=== PATIENT | female | born 1950 | race Caucasian/White ===

== ENCOUNTER 2023-05-19 13:20 | Outpatient (AMB) | payer MEDICARE, MEDICAID, SELFPAY ==
--- NOTE | 2023-05-19 13:30 | A.OFFVIS_ITS ---
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 She is here with son Jose L who is also her historian. He reports pt has constant left temporal headaches lasting between a couple of hours to a full day. This causes her pain to the left eye. She has been treating them with Tylenol. Sometimes this works and sometimes it doesn't. He reports she's a little off on time, at times she thinks its daytime in the evening or its night time in the morning . She also has difficulty sleeping. She has no problem falling asleep but she is unable to stay asleep for more than 3 hours. Allergies Penicillins Allergy (Intermediate, Verified 05/19/23 13:45) Anaphylaxis aspirin Allergy (Mild, Verified 05/19/23 13:45) Hives Medication List - Last Reconciled 05/19/23 by Sarah Man MD atorvastatin 10 mg PO DAILY cholecalciferol (vitamin D3) 10 mcg PO DAILY clonazepam 1 mg PO BID diclofenac sodium 1% (Aleve (diclofenac)) 2 grams topical QID doxazosin 1 mg PO DAILY folic acid 1 mg PO DAILY gabapentin 300 mg PO DAILY levothyroxine 25 mcg PO DAILY losartan-hydrochlorothiazide 100-25 mg (Hyzaar) 1 tab PO DAILY metoprolol succinate ER 25 mg PO DAILY [id number]-[id number] appl topical omeprazole 20 mg PO DAILY potassium chloride ER 8 mEq PO DAILY HPI HPI Comments History of Present Illness Details 72y/o female comes for evaluation cognit aidan issues and headaches she is accompanied by her son who helps with interpretation she has been having short term memory issues atleast for 1 year now. she is confused with the time of the day. she forgets conversations, repeats things, misplaces things around the house. she stays in her room most of the day.she has [employer] that gives her medications she has trouble with dates and sometimes with names and has worsened .Her mother had dementia SHe had a fall 8 mths ago and hit her head. since then she started having frequent headaches.The headaches are frontal pounding pain with neck pain with light sensitivity. No nausea . when she has headaches she has blurred vision.she has 2-3 headaches , usually tylenol helps. it can last the whole day. she has h/o anxiety . Denies depression [facility] Medical History (Updated 05/19/23 @ 14:34 by Sarah Man MD) Headaches due to old head injury Dementia Anxiety Alcoholic Cirrhosis Anemia Coarse tremors Memory loss Hyperlipidemia Diabetes HTN (hypertension) Surgical History H/O section Family History Father No problems noted. Mother No problems noted. Maternal Aunt No problems noted. Social History Household Members: Family and Children Housing: Apartment Alcohol intake: current Tobacco use type: Cigar Non Cigarette Tobacco use how long: once a month for a couple years Use of substances other than those prescribed or required for medical reasons: No Review of Systems Neuro Reports confusion Psych Reports confusion Physical Exam Vital Signs: Last Vital Signs Pulse 73 05/19/23 13:32 Resp 16 05/19/23 13:32 BP 112/62 05/19/23 13:32 Pulse Ox 96 05/19/23 13:32 Oxygen Delivery Method Room Air 05/19/23 13:32 BMI result Body Mass Index 28.7 Const Other: She went to school but says did not pay attention so cannot spell . she can read but did not bring glasses General: cooperative, comfortable and confusion Nutritional Appearance: average body habitus Orientation/consciousness: confusion Neuro Other: walks with cane slow , off balance head tremors mild neck - tightness General: tone normal, moves all extremities and confusion Cranial nerves: Yes Bilaterally intact EOM present, Yes Normal facial strength present and Yes Midline tongue present Cognition (Neuro): abnormal cognition Gait exam (Neuro): Ataxic gait present Motor exam (neuro): 5/5 motor strength present throughout and Normal motor musc le tone present throughout Deep tendon reflexes (DTR's): Right triceps reflex intensity grade: 1+, Left triceps reflex intensity grade: 1+, Rt Biceps (C5, C6): 1+, Left biceps reflex intensity grade: 1+, Right brachioradialis reflex intensity grade: 1+, Left brachioradialis reflex intensity grade: 1+, Right patellar reflex intensity grade: 1+ and Left patellar reflex intensity grade: 1+ Coordination: [id number] test normal Psych Appearance: grossly normal Orientation What is the (year) (season) (date) (day) (month)?: day and month Where are we (state) (county) (town or city) (hospital) (floor)?: town or city and hospital/clinic Registration Name of 3 unrelated objects clearly and slowly, then ask patient to repeat all 3 of them. (1st repeat determines score. Make sure they can repeat all three): object 1, object 2 and object 3 Recall Ask patient to repeat the 3 items from question #3.: object 1 Language Show patient a wristwatch & ask what it is. Repeat for pencil.: watch and pencil Ask the patient to repeat the phrase 'No ifs, ands, or buts' after you.: correct Ask the patient to 'take a piece of paper with their right hand' 'fold paper in half' 'place paper on floor': take paper in right hand and fold paper in half Score Score: 13 Assessment & Plan Assessment & Plan (1) Dementia: Comment: mixed vs vascular Code(s): F03.90 - Unspecified dementia, unspecified severity, without behavioral disturbance, psychotic disturbance, mood disturbance, and anxiety (2) Headaches due to old head injury: Comment: post head injury - migraines Code(s): G44.309 - Post-traumatic headache, unspecified, not intractable; S09.90XS - Unspecified injury of head, sequela Plan Reviewed Dr. Ulloa notes- CT brain from 2020 - age related changes Vut B 12 normal will get other lab reports Her headaches are likely post concussive but she is managing with OTC meds Her neck muscles are tight which can contribute to her headaches - she will benefit from PT for myofascial release but patient declines. I will trial her on aricept 5 mg qd for 4 weeks then 10 mg qd Discuss about increasing social activities risk factor reduction etc. Medications: New donepezil 1/2 tabq d for 4 weeks then 1 tab qd orally daily; 30 tabs 5RF Coding Level of Care Code New Pt Level 4 (80575) Diagnoses Dementia F03.90 Headaches due to old head injury G44.309; S09.90XS
[2023-05-19 13:32] VITALS: BP 112/62; PULSE 73; RESP 16; O2SAT 96; BMI 28.7
== END 2023-05-19 14:45 | disposition home or self-care (01) ==
PROVIDERS: PCP Internal Medicine; Visit Provider Psychiatry & Neurology Neurology
DX: F03.90 Unspecified dementia, unspecified severity, without behavioral disturbance, psychotic disturbance, mood disturbance, and anxiety (principal); G44.309 Post-traumatic headache, unspecified, not intractable; S09.90XS Unspecified injury of head, sequela
CPT/HCPCS: 99204

== ENCOUNTER → 2023-05-19 13:20 | Outpatient (BNVA) | payer MEDICARE, MEDICAID, SELFPAY | PROVIDERS: PCP Internal Medicine; Visit Provider Psychiatry & Neurology Neurology ==

== ENCOUNTER 2024-04-12 11:04 | Outpatient (AMB) | payer MEDICARE, MEDICAID, SELFPAY ==
--- NOTE | 2024-04-12 11:05 | A.OFFVIS_ITS ---
Vital Signs 04/12/24 11:06 Height 5 ft 1 in BP 102/58 L Blood Pressure Location Rt brachial Position Sitting Respiration 16 Pulse 120 H Pulse Source Pulse Oximeter Pulse Oximetry (%) 96 Oxygen Delivery Method Room Air Intake Visit Reasons: Cognitive disfunction - CONF Intake Note: Pt presents to the office for a one year follow up for dementia. Clinical Geneticist Required: No Allergies Penicillins Allergy (Intermediate, Verified 04/12/24 11:11) Anaphylaxis aspirin Allergy (Mild, Verified 04/12/24 11:11) Hives Medication List - Last Reconciled 04/12/24 by Sarah Man MD atorvastatin 10 mg PO DAILY cholecalciferol (vitamin D3) 10 mcg PO DAILY clonazepam 1 mg PO BID diclofenac sodium 1% (Aleve (diclofenac)) 2 grams topical QID donepezil 10 mg PO DAILY doxazosin 1 mg PO DAILY folic acid 1 mg PO DAILY gabapentin 300 mg PO DAILY levothyroxine 25 mcg PO DAILY losartan-hydrochlorothiazide 100-25 mg (Hyzaar) 1 tab PO DAILY metoprolol succinate ER 25 mg PO DAILY mtatxcri-[id number] appl topical omeprazole 20 mg PO DAILY potassium chloride ER 8 mEq PO DAILY HPI Comments Details: 73y/o female comes for follow up of cognitive issues. she is accompanied by her son who helps with interpretation she has been having short term memory issues atleast for 2 year now. she is confused with the time of the day. she forgets conversations, repeats things, misplaces things around the house. she stays in her room most of the day.she has [employer] that gives her medications she has trouble with dates and sometimes with names and has worsened .Her mother had dementia SHe had a fall 2 years and hit her head. since then she started having frequent headaches.The headaches are frontal pounding pain with neck pain with light sensitivity. No nausea . when she has headaches she has blurred vision.she has 2-3 headaches a week usually tylenol helps. it can last the whole day. she has h/o anxiety . Denies depression [facility] Medical History Headaches due to old head injury Dementia Anxiety Alcoholic Cirrhosis Anemia Coarse tremors Memory loss Hyperlipidemia Diabetes HTN (hypertension) Surgical History H/O section Family History Father No problems noted. Mother No problems noted. Maternal Aunt No problems noted. Social History Household Members: Family and Children Housing: Apartment Alcohol intake: current Tobacco use type: Cigar Review of Systems Neuro Reports confusion Psych Reports confusion Physical Exam Vital Signs: Last Vital Signs Pulse 120 H 04/12/24 11:06 Resp 16 04/12/24 11:06 BP 102/58 L 04/12/24 11:06 Pulse Ox 96 04/12/24 11:06 Oxygen Delivery Method Room Air 04/12/24 11:06 Const Other: She went to school but says did not pay attention so cannot spell . she can read but did not bring glasses General: cooperative, comfortable and confusion Nutritional Appearance: average body habitus Orientation/consciousness: confusion Neuro Other: prosper hand postural and action tremors head tremors mild neck - tightness General: tone normal, moves all extremities and confusion Cranial nerves: Yes Bilaterally intact EOM present, Yes Normal facial strength present and Yes Midline tongue present Cognition (Neuro): abnormal cognition Gait exam (Neuro): Ataxic gait present Motor exam (neuro): 5/5 motor strength present throughout and Normal motor muscle tone present throughout Coordination: [id number]-chph test normal Psych Appearance: grossly normal Assessment & Plan Assessment & Plan (1) Dementia: Comment: mixed vs vascular Code(s): F03.90 - Unspecified dementia, unspecified severity, without behavioral disturbance, psychotic disturbance, mood disturbance, and anxiety Category: Medical (2) Headaches due to old head injury: Comment: post head injury - migraines Code(s): G44.309 - Post-traumatic headache, unspecified, not intractable; S09.90XS - Unspecified injury of head, sequela Category: Medical Plan Her headaches are likely post concussive but she is managing with OTC meds Her neck muscles are tight which can contribute to her headaches - she will benefit from PT for myofascial release but patient declines. Continue aricept 10 mg qd i will trial her on namenda 10mg qd for 4 weeks and increase to bid Magnesium 400mg qhs Discuss about increasing social activities risk factor reduction etc. Medications: New magnesium oxide 400 mg PO .qhs 30 tabs 6RF memantine 1 tab po qd for 4 weeks then bid orally 2 times a day; 60 tabs 6RF Coding Level of Care Code Est Pt Level 4 (33710) Complex EM visit Add On G2211 Diagnoses Dementia F03.90 Headaches due to old head injury G44.309; S09.90XS
[2024-04-12 11:06] VITALS: BP 102/58; PULSE 120; RESP 16; O2SAT 96
== END 2024-04-12 11:29 | disposition home or self-care (01) ==
PROVIDERS: PCP Internal Medicine; Visit Provider Psychiatry & Neurology Neurology
DX: F03.90 Unspecified dementia, unspecified severity, without behavioral disturbance, psychotic disturbance, mood disturbance, and anxiety (principal); G44.309 Post-traumatic headache, unspecified, not intractable; S09.90XS Unspecified injury of head, sequela
CPT/HCPCS: 99214; G2211

== ENCOUNTER → 2024-04-12 11:04 | Outpatient (BNVA) | payer MEDICARE, MEDICAID, SELFPAY | PROVIDERS: PCP Internal Medicine; Visit Provider Psychiatry & Neurology Neurology | DX: F03.90 Unspecified dementia, unspecified severity, without behavioral disturbance, psychotic disturbance, mood disturbance, and anxiety (principal); G44.309 Post-traumatic headache, unspecified, not intractable; S09.90XS Unspecified injury of head, sequela | CPT/HCPCS: 99212 ==